=== PATIENT | male | born 1950 | race Caucasian/White ===

== ENCOUNTER 2020-06-06 08:44 | Outpatient (CLI) | payer MEDICARE ==
--- NOTE | 2020-06-06 10:16 | MRI ---
MRI of thelumbar spine with and without contrast: 06/06/2020 COMPARISON:Noncontrast enhanced MRI lumbar spine 04/23/2013 HISTORY:Prior lumbar spine surgery, persistent chronic back pain TECHNIQUE: Multiplanar multisequence MR imaging of thelumbar spine with and without contrast Findings:There is new dextroscoliosis within the mid lumbar spine. On the basis of 5 lumbar type vert ebral bodies, the conus medullaris terminates at the T12-L1 level. T12-L1: There is disc space narrowing and disc desiccation with minimal anterolisthesis. There is lu ateral facet hypertrophy, right greater than left. There is a right foraminal disc protrusion. There is no significant central canal or left neural foraminal stenosis. There is severe right neural foraminal stenosis on the basis of osteophyte formation and foraminal disc protrusion. These findings have progressed significantly since the prior MRI. L1-2: There is disc desiccation with disc space narrowing and mild disc bulge. There is prominent fac et hypertrophy on the left and mild facet hypertrophy on the right, significantly progressed. There is significant new left lateral recess stenosis. There is new severe left-sided neural foraminal sten osis and moderate right neural foraminal stenosis. L2-3: There is disc space narrowing with disc desiccation and mild disc bulge, worsened. There is lu ateral facet hypertrophy, left greater than right, worsened as well. Moderate left and mild right neural foraminal stenosis noted, new. L3-4: There is disc space narrowing with disc desiccation and vacuum disc formation. Bilateral facet hypertrophy noted, right greater than left, findings have progressed since the prior exam. No significant central canal stenosis is seen. There is severe right and moderate left neural foraminal stenosis, similar when compared to prior imaging. 6 mm of anterolisthesis. L4-5: There is disc space narrowing with disc desiccation and a disc osteophyte complex. There is ant erior osteophyte formation. There is no central canal stenosis. There is moderate/severe right neural foraminal stenosis and severe left neural foraminal stenosis, worsened bilaterally when compar ed to the prior exam. 5 mm of retrolisthesis. L5-S1: Bilateral facet hypertrophy with no significant central canal or neural foraminal stenosis. The STIR imaging demonstrates significant increased signal intensity at the L1-2 level laterally on the left suggesting degenerative endplate change. Similar findings are seen about left facet joint posteriorly at the L1-2 level and there is increased STIR signal within the soft tissues posterior to the left facet joint. This may be related to degenerative/inflammatory change and/or prior facet joint injection at this level. The postcontrast imaging demonstrates no abnormal enhancement involving the contents of the thecal sa c. There is mild enhancement of the soft tissues adjacent to the left L1-2 facet joint. There is enhance ment involving the soft tissues posterior to the left L2-3 and L3-4 facet joints has well. There is a focal area of enhancement posterior to the facet joint on the left at L4-5. These areas of enhancem ent likely are related to inflammatory/degenerative change or prior injection. There is mild enhancement of the paraspinal soft tissues on the left at the L2 level which is probably on the basis of degenerative change as the disc and endplates do not appear to definitely enhance. IMPRESSION:Severe multilevel degenerative change. Multiple focal areas of enhancement seen on the lef t, likely on the basis of multilevel facet degenerative change as well as prominent lateral degenerative change at the L1-2 level. Transcribed Date/Time: 06/06/2020 11:23 AM
[2020-06-06] MEDS ORDERED: Magnevist 469MG/ML 20 ML VIAL ONE (10:40)
== END 2020-06-06 08:45 | disposition home or self-care (01) ==
LOC: TBSIIMAG 08:44
PROVIDERS: ATTEND Neurological Surgery
DX: M54.5 Low back pain (principal); M47.816 Spondylosis without myelopathy or radiculopathy, lumbar region
CPT/HCPCS: 72158; 82565; A9579